=== PATIENT | female | born 1995 | race African-American/Black ===

== ENCOUNTER 2019-10-23 18:10 | Emergency (ER) | payer MEDICAID ==
[~2019-10-23] VITALS: Ht 165.1 cm; Wt 105.0 kg
[2019-10-23] MEDS ORDERED: IPRATROPIUM BROMIDE (0.02%) 0.5MG/2.5ML NEB HHN STA ×2 (18:20→19:41)
[2019-10-23] MEDS ORDERED: PREDNISONE 20MG TABLET PO STA (18:20)
[2019-10-23] MEDS ORDERED: ALBUTEROL (0.083%) 2.5MG/3ML NEB HHN STA ×2 (18:20→19:41)
[2019-10-23 18:26] VITALS: BP 175/109
== END 2019-10-23 20:40 | disposition home or self-care (01) ==
LOC: ER 18:10
DX: J45.901 Unspecified asthma with (acute) exacerbation (principal); F12.90 Cannabis use, unspecified, uncomplicated; Z87.440 Personal history of urinary (tract) infections
CPT/HCPCS: 71045; 94640; 99285; J7512; J7610; Z7610; 99284